=== PATIENT | male | born 1965 | race Caucasian/White ===

== ENCOUNTER → 2016-11-20 | Outpatient (CLI) | payer BC ==
--- NOTE | 2016-11-20 12:10 | KCIC ---
PROCEDURE MR of the right knee HISTORY Right knee pain. Progressive pain in recent weeks posterior to the patella. COMPARISON None TECHNIQUE Standard noncontrast images are obtained. FINDINGS No evidence of medial meniscal tear. Minimal signal at the body segment of the lateral meniscus on a single coronal slice but no sufficient surface violation to suggest a tear. Anterior and posterior cruciate ligaments are intact. Medial collateral ligament is intact. Iliotibial band unremarkable Fibular collateral ligament, biceps femoris tendon and popliteus tendon are intact. The extensor mechanism is intact with minimal proximal patellar tendon signal. Small joint effusion. No evidence of osteochondral loose body. Severe irregular chondromalacia of the patella with small subchondral cysts. Mild chondromalacia at the lower femoral trochlea. Mild chondromalacia at the medial femoral condyle. Moderate chondromalacia at the posterior lateral tibial plateau. No bone lesion or acute fracture. Small benign-appearing intraosseous cyst at the proximal tibia. Minimal subcutaneous edema anterior to the patellar tendon. IMPRESSION 1. No evidence of meniscal tear. 2. Primary osteoarthritis. Electronically signed by: Stephan Coronado MD (Nov 20, 2016 12:07:57)
== END | disposition home or self-care (01) ==
LOC: KCIC MRI 09:08
PROVIDERS: ATTEND Family Medicine
DX: S89.91XA Unspecified injury of right lower leg, initial encounter (principal); S83.251A Bucket-handle tear of lateral meniscus, current injury, right knee, initial encounter
CPT/HCPCS: 73721

== ENCOUNTER → 2016-12-09 | Day surgery (SDC) | payer BC ==
[~2016-12-09] MED LIST: FENTANYL PF 100 MCG/2 ML VIAL. IV PRN; HYDROMORPHONE 2 MG/ML VIAL. IV PRN; IV RINGERS,LACTATED 1000ML 1,000 ML IV SCH; LIDOCAINE 1% 1 ML SYRINGE. ID PRN; LIDOCAINE 2% PF Vial for OR 5 ML VIAL. ONE; MORPHINE SULFATE 2 MG/ML DISP.SYRIN. IV PRN; ONDANSETRON PF 4 MG/2 ML VIAL. IV PRN; PROCHLORPERAZINE 10 MG/2 ML VIAL. IV PRN; PROPOFOL 0 ML IV ONE
[2016-12-09 08:47] VITALS: BP 125/87
--- NOTE | 2016-12-10 15:38 | PATHOLOGY ---
PATHOLOGY REPORT * * * * * * * * FINAL DIAGNOSIS: Esophageal biopsy, distal esophagus: - Segments of hyperplastic squamous esophageal mucosa showing focal acute and chronic inflammation, consistent with reflux esophagitis. COMMENT: Sections of the distal esophageal biopsy reveal segments of hyperplastic squamous esophageal mucosa showing focal acute and chronic inflammation with a few admixed eosinophils. The findings are consistent with reflux esophagitis. There is no evidence of Dennis's change, dysplasia, or malignancy. (JPM:mgamrit; d/t: 12/10/16) REPORT ELECTRONICALLY SIGNED BY: Twan Perez M.D. DATE/TIME: 12/10/2016 15:36 * * * * * * * * GROSS PATHOLOGY: Received in formalin labeled "Nish Kurtz and distal esophagus bxs," are 4 segments of pearl soft tissue measuring 1.6 x 0.3 x 0.2 cm in aggregate dimensions and ranging from 0.2 to 0.5 cm in maximum dimension. The specimen is submitted entirely in cassette A1. (TTL; 12/09/2016) INITIAL CPT CODE(S): A; 36643 Professional services performed [place] [address] Technical services performed by [facility] at [address] [place] [address] [address] [address]. SPECIMEN(S) RECEIVED: A.Distal esophagus biopsy CLINICAL HISTORY: Heartburn PATIENT: NISH KURTZ /AGE: 412/22/1964 (Age: 51) PATIENT #: [id number] ALT CASE #: SPECIMEN COLLECTION DATE: 12/09/2016 SPECIMEN RECEIVED DATE: 12/09/2016 [facility] - [address] [place] [address] - PHONE: [phone] * * * END OF REPORT * * *
== END | disposition home or self-care (01) ==
LOC: ENDOS 06:45
PROVIDERS: ATTEND Internal Medicine Gastroenterology
DX: K21.0 Gastro-esophageal reflux disease with esophagitis (principal); K29.50 Unspecified chronic gastritis without bleeding; M19.90 Unspecified osteoarthritis, unspecified site; Z72.89 Other problems related to lifestyle; F17.200 Nicotine dependence, unspecified, uncomplicated
CPT/HCPCS: 43239; G0500; 88305; J2704